=== PATIENT | female | born 1990 | race Hispanic/Latino ===

== ENCOUNTER 2020-04-18 20:52 | Day surgery (SDC) | payer OTHER ==
[2020-04-18 21:30] VITALS: BMI 26.0
[2020-04-18 22:37] LABS: Bacteria/HPF None Seen HPF (None Seen); Bilirubin Negative (Negative); Blood, Urine 2+ (Negative); Clarity Clear (Clear); Glucose, Urine (Dipstick) Normal (Negative); Ketone, Urine Negative (Negative); Leukocyte Negative Leu/uL (Negative); Mucous/LPF Rare LPF (<2+); Nitrite Negative (Negative); Protein, Urine (Dipstick) 10 mg/dL (Neg-Trace); RBC/HPF Greater than 50 HPF (0-3); Specific Gravity, Urine 1.022 (1.002-1.036); Squamous Epithelial 0-3 HPF (0-3); Urobilinogen Normal mg/dL (Less than 2); WBC/HPF 0-3 HPF (0-3)
[2020-04-19] MEDS ORDERED: hydrALAZINE 20 MG/ML VIAL SLOW IVP PRN (00:35)
--- NOTE | 2020-04-19 06:19 | PRG ---
DATE OF SERVICE: 04/18/2020 PRIMARY OB: Severo Urbano MD CHIEF COMPLAINT: Abdominal pains. HISTORY OF PRESENT ILLNESS: The patient is a 29-year-old G4, P3 female, with an intrauterine at , presenting to Labor and Delivery with complaints of abdominal pains that she feels about four times an hour and she reports having a mucousy discharge. The patient this morning was in the doctor's office and was 4 cm dilated. Patient denies fever, headache, chest pain, shortness of breath, nausea, vomiting, diarrhea, constipation, hip problems, knee problems, muscle weakness. She denies vaginal bleeding. She does report some urinary urgency. The patient reports abdominal pain that is worse with activity and movement. She also reports that she had pains that began in her back and moved to the front, which in the past have indicated time for labor. PAST MEDICAL HISTORY: Negative. PAST SURGICAL HISTORY: Negative. ALLERGIES: NO KNOWN DRUG ALLERGIES. SOCIAL HISTORY: Denies drug, alcohol or tobacco use. OB LABS: Unavailable at time of dictation. REVIEW OF SYSTEMS: Per HPI. PHYSICAL EXAMINATION: VITAL SIGNS: Blood pressure is 116/70, heart rate 79, respiratory rate 18, temperature 98.3. GENERAL: She appears to be in no acute distress. She is alert, oriented, cooperative, and pleasant to interact with. HEAD: Normocephalic, atraumatic. LUNGS: Clear to auscultation bilaterally. HEART: Regular rate and rhythm. ABDOMEN: Gravid, soft. She does have tenderness in the lateral aspects of the uterus, particularly with deviation of the uterus. Vulva is without masses, lesions, or erythema. Vagina is moist. There is no pooling or significant discharge. On cervical exam, she is 4, 75, -3 station, unchanged after 2.5 hours. LABORATORY DATA: Urinalysis only significant for blood. No leukocyte esterase. No nitrites. No white blood cells. No ketones. This was a straight cath specimen. heart tracing shows the fetus with a baseline in the 130s with moderate long-term variability, positive 15 x 15 accelerations, no decelerations. Tocometer showing some irritability, but no consistent regular contraction pattern. ASSESSMENT AND PLAN: The patient is a 29-year-old multiparous female with an intrauterine at 39wks_, presenting for uterine contractions. She has no evidence of active labor at this time. She does have a very favorable cervix. We watched her for about 2.5 hours. There is no evidence of rupture of membranes. Patient has an appointment tomorrow morning at 8 o'clock with her primary OB provider, Dr. Urbano. Fetus has a category 1 tracing and reactive NST. PT was discharged home. Job ID: [id number] [facility]
[2020-04-19] MEDS ORDERED: FLU VACC QS2020-21(6MOS UP)/PF 60 MCG/0.5 ML SYRINGE IM ONE (21:00)
== END 2020-04-19 00:33 | disposition home or self-care (01) ==
LOC: L&D/OP 20:52
PROVIDERS: ATTEND Family Medicine
DX: O47.1 False labor at or after 37 completed weeks of gestation (principal); O99.891 Other specified diseases and conditions complicating pregnancy; N89.8 Other specified noninflammatory disorders of vagina; Z3A.39 39 weeks gestation of pregnancy
CPT/HCPCS: 51701; 81001; 99283

== ENCOUNTER 2020-04-19 09:23 | Inpatient (IN) | payer MEDICAID, OTHER, SELFPAY ==
[~2020-04-19 09:23] MED LIST: Bupivacaine/Epinephrine 0.25% 30 ML VIAL ONE
[2020-04-19] MEDS ORDERED: hydrALAZINE 20 MG/ML VIAL SLOW IVP PRN ×2 (09:57→20:31)
[2020-04-19] MEDS ORDERED: Methylergonovine 0.2 MG/ML VIAL IM PRN (09:57)
[2020-04-19] MEDS ORDERED: Misoprostol 200 MCG TAB PR PRN (09:57)
[2020-04-19] MEDS ORDERED: Lidocaine 1% (PF) 30 ML VIAL SC PRN (09:57)
[2020-04-19] MEDS ORDERED: Carboprost 250 MCG/ML AMP IM PRN (09:57)
[2020-04-19] MEDS ORDERED: Ondansetron PF 4 MG/2 ML Vial IVP PRN ×2 (09:57→20:31)
[2020-04-19] MEDS ORDERED: Ibuprofen 800 MG TAB PO PRN (09:57)
[2020-04-19] MEDS ORDERED: Butorphanol Tartrate 1 MG/ML VIAL SLOW IVP PRN (09:57)
[2020-04-19] MEDS ORDERED: Diphenoxylate HCl/Atropine Tablet PO PRN (09:57)
[2020-04-19] MEDS ORDERED: HYDROcodone/Acetaminophen 5/325 mg Tablet PO PRN ×3 (09:57→20:31)
[2020-04-19] MEDS ORDERED: Promethazine HCl 25 MG/ML VIAL IM PRN ×2 (09:57→20:31)
[2020-04-19] MEDS ORDERED: Penicillin G Potassium 5 MILL.UNITS in Sodium Chloride 0.9% 100 ML IVPB SCH (10:00)
[2020-04-19] MEDS ORDERED: NS w/ Oxytocin 10 units 500 ML IV SCH ×2 (10:00)
[2020-04-19] MEDS ORDERED: Penicillin G 2.5 MILL.units 2.5 MILL.UNITS in Premix Bag 1 BAG IVPB SCH (10:00)
[2020-04-19 10:02] VITALS: BMI 27.5
[2020-04-19 10:33] LABS: Mean Corpuscular HGB CONC 34.2 g/dL (32.0-36.0); Mean Corpuscular Hemoglobin 30.5 pg (27.0-31.0); Mean Corpuscular Volume 89.3 fL (78.0-98.0); Mean Platelet Volume 7.3 fL (7.4-10.4); Platelet Count 260 thou/uL (130-400); RBC Distribution Width 12.3 % (11.5-14.5); Red Blood Cell (RBC) Count 4.25 mill/uL (4.20-5.40); White Blood Cell (WBC) Count 9.1 thou/uL (4.8-10.8)
[2020-04-19] MEDS: Lactated Ringer's 1,000 ML IV SCH ×2 (11:07→14:49)
[2020-04-19 11:14] LABS: Syphilis Antibody Nonreactive (Nonreactive); Syphilis Antibody Index 0.04 S/CO (<1.00 Non-Reactive)
[2020-04-19 11:15] LABS: HBSAg Index 0.21 S/CO (0-0.99); Hep B Surf Ag Non-Reactive S/CO (NonReactive)
[2020-04-19] MEDS ORDERED: Penicillin G 2.5 MILL.units 50 ML ONE (13:57)
[2020-04-19] MEDS ORDERED: Bupivacaine 0.5% 20 ML, fentaNYL Citrate/PF 400 MCG in Sodium Chloride 0.9% 72 ML EPIDURAL SCH (14:15)
[2020-04-19] MEDS ORDERED: DISCONTINUE ALL PREVIOUS NARCOTICS FS SCH (14:15)
[2020-04-19] MEDS ORDERED: Carboprost 250 MCG/ML AMP ONE (16:36)
[2020-04-19] MEDS ORDERED: Tranexamic Acid 1,000 MG/10 ML VIAL ONE (16:38)
[2020-04-19] MEDS: NS / Oxytocin 40 units/1000ml 1,000 ML IV PRN ×2 (17:27→18:41)
[2020-04-19] MEDS ORDERED: cloNIDine 0.1 MG TAB PO PRN (18:19)
[2020-04-19] MEDS ORDERED: Acetaminophen 500 MG TAB PO PRN (18:22)
[2020-04-19 20:11] LABS: SARS-CoV-2 MS2 Positive; SARS-CoV-2 N Gene Negative; SARS-CoV-2 S Gene Negative; SARS-CoV-2 by NAA Not Detected (NotDetected); SARS-CoV-2 orf1ab Negative
[2020-04-19] MEDS ORDERED: Lanolin Ointment 7 GM TUBE TOP PRN (20:31)
[2020-04-19] MEDS ORDERED: NS / Oxytocin 40 units/1000ml 1,000 ML IV SCH (20:31)
[2020-04-19] MEDS ORDERED: Milk Of Magnesia 30 ML UDCUP PO PRN (20:31)
[2020-04-19] MEDS ORDERED: Benzocaine-Menthol 82.5 ML CAN TOP PRN (20:31)
[2020-04-19] MEDS ORDERED: diphenhydrAMINE 25 MG CAP PO PRN (20:31)
[2020-04-19] MEDS ORDERED: Bisacodyl 10 MG SUPP PR PRN (20:31)
[2020-04-19] MEDS: Docusate Calcium (SURFAK) 240 MG CAP PO SCH (22:27)
[2020-04-19] MEDS: Ibuprofen 800 MG TAB PO SCH (22:27)
[2020-04-19] MEDS ORDERED: Misoprostol 200 MCG TAB PO SCH (23:30)
[2020-04-20] MEDS: Ibuprofen 800 MG TAB PO SCH ×3 (00:33→14:06)
[2020-04-20 07:30] LABS: Hemoglobin 11.4 g/dL (12.0-16.0); Mean Corpuscular HGB CONC 33.8 g/dL (32.0-36.0); Mean Corpuscular Hemoglobin 30.3 pg (27.0-31.0); Mean Corpuscular Volume 89.6 fL (78.0-98.0); Mean Platelet Volume 7.3 fL (7.4-10.4); Platelet Count 239 thou/uL (130-400); RBC Distribution Width 12.1 % (11.5-14.5); Red Blood Cell (RBC) Count 3.76 mill/uL (4.20-5.40); White Blood Cell (WBC) Count 11.9 thou/uL (4.8-10.8)
[2020-04-20] MEDS ORDERED: Ferrous Sulfate 325 MG TAB PO SCH (08:00)
[2020-04-20] MEDS ORDERED: Adacel (T-DAP) 0.5 ML SYRINGE IM ONE (09:00)
[2020-04-20] MEDS ORDERED: Prenatal Vitamin 1 TAB PO SCH (09:00)
[2020-04-20] MEDS: Docusate Calcium (SURFAK) 240 MG CAP PO SCH (09:55)
[2020-04-20] MEDS ORDERED: FLU VACC QS2020-21(6MOS UP)/PF 60 MCG/0.5 ML SYRINGE IM ONE (11:00)
[2020-04-20 11:36] VITALS: TEMP 98.4
[2020-04-20 17:57] VITALS: BP 100/59
[2020-04-21] MEDS ORDERED: FLU VACC QS2020-21(6MOS UP)/PF 60 MCG/0.5 ML SYRINGE IM ONE (09:30)
== END 2020-04-20 19:00 | disposition home or self-care (01) | DRG 807 ==
LOC: L&D 09:23 → 3SW 21:01
PROVIDERS: ADMIT Family Medicine; ATTEND Family Medicine
PROC: 10E0XZZ Delivery of Products of Conception, External Approach (ICD-10-PCS; principal; 2020-04-19)
PROC: 0HQ9XZZ Repair Perineum Skin, External Approach (ICD-10-PCS; 2020-04-19)
PROC: 10907ZC Drainage of Amniotic Fluid, Therapeutic from Products of Conception, Via Natural or Artificial Opening (ICD-10-PCS; 2020-04-19)
DX: O99.824 Streptococcus B carrier state complicating childbirth (principal); Z37.0 Single live birth; Z3A.39 39 weeks gestation of pregnancy; Z23 Encounter for immunization; Z20.828 Contact with and (suspected) exposure to other viral communicable diseases; O69.81X0 Labor and delivery complicated by cord around neck, without compression, not applicable or unspecified; O70.0 First degree perineal laceration during delivery; O62.2 Other uterine inertia
CPT/HCPCS: 36415; 51702; 85027; 86780; 86850; 86900; 86901; 87340; 87635; 90471; 90662; 90715; G0008; J2210; J2405; J2540; J2590; J3010; J3490; U0003